=== PATIENT | female | born 1960 | race Hispanic/Latino ===

== ENCOUNTER 2016-04-24 21:40 | Emergency (ER) | payer OTHER ==
[2016-04-24] MEDS ORDERED: diphenhydrAMINE 25 MG CAP As Ordered ONE (23:27)
[2016-04-24] MEDS ORDERED: methylPREDNISolone INJ 125 MG/2 ML VIAL (J2930) As Ordered ONE (23:28)
--- NOTE | 2016-04-25 00:02 | EDDOCDS ---
Physician Documentation Name: Bridget Watson Age: 55 yrs Sex: Female : 1960 Arrival Date: 04/24/2016 Time: 21:40 Bed I1 / M1 Private MD: Disposition: 04/24/16 23:45 Discharged to Home/Self Care. Impression: Allergic contact dermatitis due to cosmetics. - Condition is Stable. - Discharge Instructions: Contact Dermatitis. - Prescriptions for Prednisone 20 mg Oral Tablet - take 2 tablets by ORAL route once daily for 3 days; 6 tablet. - Medication Reconciliation form. - [facility]; When: Call to arrange an appointment; Reason: Recheck today's complaints, Continuance of care, To establish care. - Problem is an ongoing problem. - Symptoms are unchanged. - Notes: You may take benadryl over the counter as directed by the bottle. Historical: - Allergies: Codeine Sulfate (Vomit); - Home Meds: 1. none - PMHx: none; - PSHx: Hysterectomy; - Social history: Smoking status: Patient states was never smoker of tobacco. No barriers to communication noted, The patient speaks fluent Estonian. - Family history: Not pertinent. - : The pt / caregiver states he / she is not on anticoagulants. Home medication list is obtained from the patient. - Exposure Risk Screening:: None identified. 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 11 in. (149.86 cm) (R); Pain 8/10; 23:59 BP 149 / 74; Pulse 60; Resp 16; Pulse Ox 96% on R/A; Pain 0/10; mf4 21:41 Body Mass Index 29.89 (67.13 kg, 149.86 cm) kb5 MDM: 23:25 methylPREDNISolone Sodium Succinate 125 mg IM once ordered. cc10 23:26 diphenhydrAMINE 25 mg PO once ordered. cc10 04/25 00:01 Financial registration complete. [facility] Administered Medications: 04/24 23:35 Drug: methylPREDNISolone Sodium Succinate 125 mg [methylprednisolone sodium succ 125 mg mf4 solution for injection (125 mg)] Route: IM; Site: right gluteus; 23:35 Drug: diphenhydrAMINE 25 mg [diphenhydramine 25 mg capsule (1 caps)] Route: PO; mf4 Signatures: Alena Rosario RN RN lf1 Elizabeth Red RN RN rs3 August Valdez,COST ESTIMATING CLERK COST ESTIMATING CLERK mf4 Kenny Grijalva PA-C PASriram cc10 Ivonne Mcfarlane [facility] MTDD
--- NOTE | 2016-04-25 00:02 | EDDOCDS ---
Nurse's Notes [facility] Name: Bridget Watson Age: 55 yrs Sex: Female : 1960 Arrival Date: 04/24/2016 Time: 21:40 Bed I1 / M1 Private MD: Diagnosis: Allergic contact dermatitis due to cosmetics Presentation: 04/24 21:46 Presenting complaint: Patient states: lip swelling/irritation from chap stick 3 weeks rs3 ago. increased pain and drainage from lips since this morning. Onset: The symptoms/episode began/occurred gradually. This patient has not experienced a previous allergic reaction. Anaphylaxis evaluation, the patient reports or I have noted the following symptoms which indicate a significant risk of anaphylaxis: no signs or symptoms of anaphylaxis were noted. Adult Sepsis Screening: The patient does not have new or worsening altered mentation. Patient's respiratory rate is less than 22. Systolic blood pressure is greater than 100. Patient has a qSOFA score of 0- Negative Sepsis Screen. Suicide/Homicide risk assessment- the patient denies having any suicidal and/or homicidal ideations and does not present with any other emotional, behavioral or mental health complaints. Status: The patient is a dependent. Transition of care: patient was not received from another setting of care. 21:46 Acuity: JEAN-PIERRE Level 5 rs3 21:46 Method Of Arrival: Walkin/Carried/Asstd rs3 Triage Assessment: 21:49 General: Appears in no apparent distress. Pain: Location: mouth. HIV screening NA for rs3 this visit Offered previously. Respiratory: Reports no respiratory complaints. OFFC SPEC: 21:49 LMP N/A - Hysterectomy rs3 Historical: - Allergies: Codeine Sulfate (Vomit); - Home Meds: 1. none - PMHx: none; - PSHx: Hysterectomy; - Social history: Smoking status: Patient states was never smoker of tobacco. No barriers to communication noted, The patient speaks fluent Venezuelan. - Family history: Not pertinent. - : The pt / caregiver states he / she is not on anticoagulants. Home medication list is obtained from the patient. - Exposure Risk Screening:: None identified. Screenin/21 00:00 Screening information is obtained from the patient. Fall risk: No risks identified. mf4 Assistance ADL's: requires no assistance with activities of daily living. Abuse/DV Screen: The patient / caregiver reports he/she is: not in a situation that causes fear, pain or injury. Nutritional screening: No deficits noted. Advance Directives: Unable to assess Advance Directive status due to pt condition. home support is adequate. Assessment: 04/24 23:43 Adult Sepsis Screening: The patient does not have new or worsening altered mentation. lf1 Patient's respiratory rate is less than 22. Systolic blood pressure is greater than 100. Patient has a qSOFA score of 0- Negative Sepsis Screen. General: Appears in no apparent distress, Behavior is cooperative. Pain: Denies pain. Neurological: Level of Consciousness is awake, alert, Oriented to person, place, time. EENT: Reports lip irritation for three weeks. Respiratory: Respiratory effort is even, unlabored. GI: Denies nausea, vomiting. Derm: No deficits noted. Vital Signs: 21:41 BP 123 / 72; Pulse 72; Resp 18; Temp 96.9(O); Pulse Ox 97% on R/A; Weight 67.13 kg (M); kb5 Height 4 ft. 11 in. (149.86 cm) (R); Pain 8/10; 23:59 BP 149 / 74; Pulse 60; Resp 16; Pulse Ox 96% on R/A; Pain 0/10; mf4 21:41 Body Mass Index 29.89 (67.13 kg, 149.86 cm) kb5 Vitals: 21:41 Log In Time: April 24, 2016 at 21:30. kb5 ED Course: 21:41 Patient visited by Rl Bernardo PCA. kb5 21:41 Patient moved to Waiting kb5 21:46 Patient moved to Pre RCE rs3 21:48 Triage Initiated rs3 23:20 Patient moved to I1 / M1 lf1 23:22 Kenny Grijalva PA-C is PHCP. cc10 23:22 Miguel Angel Coyne DO is Attending Physician. cc10 23:22 Patient visited by Kenny Grijalva PA-C. cc10 23:22 Patient visited by Kenny Grijalva PA-C. cc10 23:44 Patient visited by Alena Rosario RN. lf1 23:45 [facility] is Referral Physician. cc10 04/25 00:00 The patient / caregiver is instructed regarding the plan of care and ED course. mf4 00:00 No IV's were initiated during this patient's visit. No procedures done that require mf4 assistance. Administered Medications: 04/24 23:35 Drug: methylPREDNISolone Sodium Succinate 125 mg [methylprednisolone sodium succ 125 mg mf4 solution for injection (125 mg)] Route: IM; Site: right gluteus; 23:35 Drug: diphenhydrAMINE 25 mg [diphenhydramine 25 mg capsule (1 caps)] Route: PO; mf4 Order Results: There are currently no results for this order. Outcome: 23:45 Discharge ordered by Provider. cc10 04/25 00:00 Discharge Assessment: Patient awake, alert and oriented x 3. No cognitive and/or mf4 functional deficits noted. Patient verbalized understanding of disposition instructions. patient administered narcotics - no. The following High Risk Discharge criteria are identified: None. Condition: stable. Discharge instructions given to patient, significant other, Instructed on discharge instructions, follow up and referral plans. medication usage, Demonstrated understanding of instructions, medications, Pt was receptive of discharge instructions/ teaching. Prescriptions given X 1. No special radiology studies were completed. Property sent home with patient. 00:01 Patient left the ED. mf4 Signatures: Rl Bernardo, ACCOUNTING MACHINE SERVICER ACCOUNTING MACHINE SERVICER kb5 Alena Rosario,RN RN lf1 Elizabeth Red,RN RN rs3 August Valdez,MANAGER OF HOUSEKEEPING MANAGER OF HOUSEKEEPING mf4 Kenny Grijalva, PAWeiC PA-C cc10 MTDD
--- NOTE | 2016-04-27 01:02 | EDDOCDS ---
Nurse's Notes [facility] Name: Bridget Watson Age: 55 yrs Sex: Female : 1960 Arrival Date: 04/24/2016 Time: 21:40 Bed I1 / M1 Private MD: Diagnosis: Allergic contact dermatitis due to cosmetics Presentation: 04/24 21:46 Presenting complaint: Patient states: lip swelling/irritation from chap [place] 3 weeks rs3 ago. increased pain and drainage from lips since this morning. Onset: The symptoms/episode began/occurred gradually. This patient has not experienced a previous allergic reaction. Anaphylaxis evaluation, the patient reports or I have noted the following symptoms which indicate a significant risk of anaphylaxis: no signs or symptoms of anaphylaxis were noted. Adult Sepsis Screening: The patient does not have new or worsening altered mentation. Patient's respiratory rate is less than 22. Systolic blood pressure is greater than 100. Patient has a qSOFA score of 0- Negative Sepsis Screen. Suicide/Homicide risk assessment- the patient denies having any suicidal and/or homicidal ideations and does not present with any other emotional, behavioral or mental health complaints. Status: The patient is a dependent. Transition of care: patient was not received from another setting of care. 21:46 Acuity: JEAN-PIERRE Level 5 rs3 21:46 Method Of Arrival: Walkin/Carried/Asstd rs3 Triage Assessment: 21:49 General: Appears in no apparent distress. Pain: Location: mouth. HIV screening NA for rs3 this visit Offered previously. Respiratory: Reports no respiratory complaints. 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 none - PMHx: none; - PSHx: Hysterectomy; - Social history: Smoking status: Patient states was never smoker of tobacco. No barriers to communication noted, The patient speaks fluent Turkmen. - Family history: Not pertinent. - : The pt / caregiver states he / she is not on anticoagulants. Home medication list is obtained from the patient. - Exposure Risk Screening:: None identified. Screenin/21 00:00 Screening information is obtained from the patient. Fall risk: No risks identified. mf4 Assistance ADL's: requires no assistance with activities of daily living. Abuse/DV Screen: The patient / caregiver reports he/she is: not in a situation that causes fear, pain or injury. Nutritional screening: No deficits noted. Advance Directives: Unable to assess Advance Directive status due to pt condition. home support is adequate. Assessment: 04/24 23:43 Adult Sepsis Screening: The patient does not have new or worsening altered mentation. lf1 Patient's respiratory rate is less than 22. Systolic blood pressure is greater than 100. Patient has a qSOFA score of 0- Negative Sepsis Screen. General: Appears in no apparent distress, Behavior is cooperative. Pain: Denies pain. Neurological: Level of Consciousness is awake, alert, Oriented to person, place, time. EENT: Reports lip irritation for three weeks. Respiratory: Respiratory effort is even, unlabored. GI: Denies nausea, vomiting. Derm: No deficits noted. Vital Signs: 21:41 BP 123 / 72; Pulse 72; Resp 18; Temp 96.9(O); Pulse Ox 97% on R/A; Weight 67.13 kg (M); kb5 Height 4 ft. 11 in. (149.86 cm) (R); Pain 8/10; 23:59 BP 149 / 74; Pulse 60; Resp 16; Pulse Ox 96% on R/A; Pain 0/10; mf4 21:41 Body Mass Index 29.89 (67.13 kg, 149.86 cm) kb5 Vitals: 21:41 Log In Time: April 24, 2016 at 21:30. kb5 ED Course: 21:41 Patient visited by Rl Bernardo PCA. kb5 21:41 Patient moved to Waiting kb5 21:46 Patient moved to Pre RCE rs3 21:48 Triage Initiated rs3 23:20 Patient moved to I1 / M1 lf1 23:22 Kenny Grijalva PA-C is PHCP. cc10 23:22 Miguel Angel Coyne DO is Attending Physician. cc10 23:22 Patient visited by Kenny Grijalva PA-C. cc10 23:22 Patient visited by Kenny Grijalva PA-C. cc10 23:44 Patient visited by Alena Rosario RN. lf1 23:45 [facility] is Referral Physician. cc10 04/25 00:00 The patient / caregiver is instructed regarding the plan of care and ED course. mf4 00:00 No IV's were initiated during this patient's visit. No procedures done that require mf4 assistance. 01:11 Patient name changed from Bridget\S\\S\Walter\S\ to Bridget\S\ \S\Walter. EDMS 01:15 [facility] Payment Agreement was scanned into [employer] and attached to record. [facility] 10:21 T-Sheet-- Draft Copy was scanned into [employer] and attached to record. gb Administered Medications: 04/24 23:35 Drug: methylPREDNISolone Sodium Succinate 125 mg [methylprednisolone sodium succ 125 mg mf4 solution for injection (125 mg)] Route: IM; Site: right gluteus; 23:35 Drug: diphenhydrAMINE 25 mg [diphenhydramine 25 mg capsule (1 caps)] Route: PO; mf4 Order Results: There are currently no results for this order. Outcome: 23:45 Discharge ordered by Provider. cc10 04/25 00:00 Discharge Assessment: Patient awake, alert and oriented x 3. No cognitive and/or mf4 functional deficits noted. Patient verbalized understanding of disposition instructions. patient administered narcotics - no. The following High Risk Discharge criteria are identified: None. Condition: stable. Discharge instructions given to patient, significant other, Instructed on discharge instructions, follow up and referral plans. medication usage, Demonstrated understanding of instructions, medications, Pt was receptive of discharge instructions/ teaching. Prescriptions given X 1. No special radiology studies were completed. Property sent home with patient. 00:01 Patient left the ED. mf4 Signatures: Dispatcher [employer] EDMS Hina Steen, Reg Reg gb Rl Bernardo, NEWSPERSON NEWSPERSON kb5 Alena Rosario,RN RN lf1 Elizabeth Red,RN RN rs3 August Valdez,PEER SUPPORT SPECIALIST PEER SUPPORT SPECIALIST mf4 Kenny Grijalva PA-C PAWeiC cc10 Ivonne Mcfarlane [facility] Chart Complete MTDD
--- NOTE | 2016-04-27 01:02 | EDDOCDS ---
Physician Documentation [facility] Name: Bridget Watson Age: 55 yrs Sex: Female : 1960 Arrival Date: 04/24/2016 Time: 21:40 Bed I1 / M1 Private MD: Disposition: 04/24/16 23:45 Discharged to Home/Self Care. Impression: Allergic contact dermatitis due to cosmetics. - Condition is Stable. - Discharge Instructions: Contact Dermatitis. - Prescriptions for Prednisone 20 mg Oral Tablet - take 2 tablets by ORAL route once daily for 3 days; 6 tablet. - Medication Reconciliation form. - [facility] up: [facility]; When: Call to arrange an appointment; Reason: Recheck today's complaints, Continuance of care, To establish care. - Problem is an ongoing problem. - Symptoms are unchanged. - Notes: You may take benadryl over the counter as directed by the bottle. Historical: - Allergies: Codeine Sulfate (Vomit); - Home Meds: 1. none - PMHx: none; - PSHx: Hysterectomy; - Social history: Smoking status: Patient states was never smoker of tobacco. No barriers to communication noted, The patient speaks fluent Greek. - Family history: Not pertinent. - : The pt / caregiver states he / she is not on anticoagulants. Home medication list is obtained from the patient. - Exposure Risk Screening:: None identified. 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 11 in. (149.86 cm) (R); Pain 8/10; 23:59 BP 149 / 74; Pulse 60; Resp 16; Pulse Ox 96% on R/A; Pain 0/10; mf4 21:41 Body Mass Index 29.89 (67.13 kg, 149.86 cm) kb5 MDM: 23:25 methylPREDNISolone Sodium Succinate 125 mg IM once ordered. cc10 23:26 diphenhydrAMINE 25 mg PO once ordered. cc10 04/25 00:01 Financial registration complete. [facility] 01:15 [facility] Payment Agreement was scanned into [employer] and attached to record. [facility] : T-Sheet-- Draft Copy was scanned into [employer] and attached to record. gb Administered Medications: 04/24 23:35 Drug: methylPREDNISolone Sodium Succinate 125 mg [methylprednisolone sodium succ 125 mg mf4 solution for injection (125 mg)] Route: IM; Site: right gluteus; 23:35 Drug: diphenhydrAMINE 25 mg [diphenhydramine 25 mg capsule (1 caps)] Route: PO; mf4 Signatures: Hina Steen, Reg Reg gb Alena Rosario,RN RN lf1 Elizabeth Red,RN RN rs3 August Valdez,TUNNEL HEADING INSPECTOR TUNNEL HEADING INSPECTOR mf4 Kenny Grijalva, PAWeiC PASriram cc10 Ivonne Mcfarlane [facility] The chart was reviewed and I authenticate all verbal orders and agree with the evaluation and treatment provided.Attachments: 04/25 01:15 [facility] [place] Payment Agreement [facility] : T-Sheet-- Draft Copy Chart Complete MTDD
--- NOTE | 2016-04-27 01:02 | EDDOCDS ---
Physician Documentation [facility] Name: Bridget Watson Age: 55 yrs Sex: Female : 1960 Arrival Date: 04/24/2016 Time: 21:40 Bed I1 / M1 Private MD: Disposition: 04/24/16 23:45 Discharged to Home/Self Care. Impression: Allergic contact dermatitis due to cosmetics. - Condition is Stable. - Discharge Instructions: Contact Dermatitis. - Prescriptions for Prednisone 20 mg Oral Tablet - take 2 tablets by ORAL route once daily for 3 days; 6 tablet. - Medication Reconciliation form. - [facility] up: [facility]; When: Call to arrange an appointment; Reason: Recheck today's complaints, Continuance of care, To establish care. - Problem is an ongoing problem. - Symptoms are unchanged. - Notes: You may take benadryl over the counter as directed by the bottle. Historical: - Allergies: Codeine Sulfate (Vomit); - Home Meds: 1. none - PMHx: none; - PSHx: Hysterectomy; - Social history: Smoking status: Patient states was never smoker of tobacco. No barriers to communication noted, The patient speaks fluent Icelandic. - Family history: Not pertinent. - : The pt / caregiver states he / she is not on anticoagulants. Home medication list is obtained from the patient. - Exposure Risk Screening:: None identified. WILDLAND FIRE FIGHTER SPECIALIST: 04/24 21:49 LMP N/A - Hysterectomy rs3 Vital Signs: 21:41 BP 123 / 72; Pulse 72; Resp 18; Temp 96.9(O); Pulse Ox 97% on R/A; Weight 67.13 kg / kb5 148 lbs (M); Height 4 ft. 11 in. (149.86 cm) (R); Pain 8/10; 23:59 BP 149 / 74; Pulse 60; Resp 16; Pulse Ox 96% on R/A; Pain 0/10; mf4 21:41 Body Mass Index 29.89 (67.13 kg, 149.86 cm) kb5 MDM: 23:25 methylPREDNISolone Sodium Succinate 125 mg IM once ordered. cc10 23:26 diphenhydrAMINE 25 mg PO once ordered. cc10 04/25 00:01 Financial registration complete. [facility] 01:15 [facility] Payment Agreement was scanned into [employer] and attached to record. [facility] : T-Sheet-- Draft Copy was scanned into [employer] and attached to record. gb Administered Medications: 04/24 23:35 Drug: methylPREDNISolone Sodium Succinate 125 mg [methylprednisolone sodium succ 125 mg mf4 solution for injection (125 mg)] Route: IM; Site: right gluteus; 23:35 Drug: diphenhydrAMINE 25 mg [diphenhydramine 25 mg capsule (1 caps)] Route: PO; mf4 Signatures: Hina Steen, Reg Reg gb Alena Rosario,RN RN lf1 Elizabeth Red,RN RN rs3 August Valdez,QUALITY SYSTEM MANAGER QUALITY SYSTEM MANAGER mf4 Kenny Grijalva, PAWieC PASriram cc10 Ivonne Mcfarlane [facility] The chart was reviewed and I authenticate all verbal orders and agree with the evaluation and treatment provided.Attachments: 04/25 01:15 [id number] Payment Agreement [facility] : T-Sheet-- Draft Copy Chart Complete MTDD
== END 2016-04-25 00:01 | disposition home or self-care (01) ==
LOC: M ED 21:40
DX: T78.40XA Allergy, unspecified, initial encounter (principal); X58.XXXA Exposure to other specified factors, initial encounter; Y92.9 Unspecified place or not applicable; Y93.9 Activity, unspecified; Y99.9 Unspecified external cause status; Z88.5 Allergy status to narcotic agent
CPT/HCPCS: 96372; 99283; J2930

== ENCOUNTER 2017-09-20 08:32 | Emergency (ER) | payer OTHER | END 2017-09-20 09:22 | disposition home or self-care (01) | LOC: M ED 08:32 | DX: L03.211 Cellulitis of face (principal) | CPT/HCPCS: 99282 ==

== ENCOUNTER 2017-10-14 14:35 | Emergency (ER) | payer OTHER ==
[2017-10-14] MEDS: MUPIROCIN 2% OINT 22 GM TUBE TOP (15:37)
[2017-10-14] MEDS: predniSONE 20 MG TAB PO (15:38)
[2017-10-14 15:56] LABS: C REACTIVE PROTEIN QUANTITATIV 0.44 MG/DL (0.00-0.30)
[2017-10-14 15:56] LABS: RHEUMATOID FACTOR QUANT < 10.0 IU/ML (<15.0)
[2017-10-14 15:59] LABS: ERYTHROCYTE SEDIMENTATION RATE 18 mm/hr (0-30)
[2017-10-16 14:28] LABS: ANTINUCLEAR ANTIBODIES DIRECT Negative (Negative)
== END 2017-10-14 15:50 | disposition home or self-care (01) ==
LOC: M ED 14:35
DX: R21 Rash and other nonspecific skin eruption (principal); Z79.899 Other long term (current) drug therapy; Z88.5 Allergy status to narcotic agent
CPT/HCPCS: 86140